=== PATIENT | female | born 1965 | race Caucasian/White ===

== ENCOUNTER 2016-06-02 15:03 | Emergency (ER) | payer OTHER ==
--- NOTE | 2016-06-02 16:33 | ER Document Report ---
ED Medical Screen (RME) - General Chief Complaint: Shortness Of Breath Stated Complaint: SHORTNESS OF BREATH Mode of Arrival: Ambulatory Information source: Patient Notes: 50-year-old female on xarelto with history of multiple DVTs and pulmonary emboli presents with complaints of generalized weakness over the past week. Patient notes she was placed on Bactrim Keflex for a skin infection believe she may be having a allergic reaction to this however does note recent travel I have greeted and performed a rapid initial assessment of this patient. A comprehensive ED assessment and evaluation of the patient, analysis of test results and completion of the medical decision making process will be conducted by additional ED providers. PHYSICAL EXAMINATION: GENERAL: Well-appearing, well-nourished and in no acute distress. HEAD: Atraumatic, normocephalic. EYES: Pupils equal round extraocular movements intact, conjunctiva are normal. ENT: Nares patent NECK: Normal range of motion LUNGS: No respiratory distress Musculoskeletal: Normal range of motion NEUROLOGICAL: Normal speech, normal gait. PSYCH: Normal mood, normal affect. SKIN: Generalized mild erythema of bilateral upper extremities TRAVEL OUTSIDE OF THE [place] IN LAST 30 DAYS: No - Related Data Allergies/Adverse Reactions: No Known Allergies Allergy (Verified 06/02/16 16:01) Past Medical History Renal/ Medical History: Denies: Hx Peritoneal Dialysis Physical Exam - Vital signs Vitals: Temp Pulse Resp BP Pulse Ox 97.3 F 81 20 107/60 99 06/02/16 15:24 06/02/16 15:24 06/02/16 15:24 06/02/16 15:24 06/02/16 15:24 Course - Vital Signs Vital signs: Temp Pulse Resp BP Pulse Ox 97.3 F 81 20 107/60 99 06/02/16 15:24 06/02/16 15:24 06/02/16 15:24 06/02/16 15:24 06/02/16 15:24
[2016-06-02 16:42] LABS: ABSOLUTE EOSINOPHILS # (AUTO) 0.3 10^3/uL (0.0-0.6); ABSOLUTE LYMPHOCYTES (AUTO) 1.7 10^3/uL (0.5-4.7); ABSOLUTE MONOCYTES (AUTO) 0.3 10^3/uL (0.1-1.4); BASOPHILS % (AUTO) 0.8 % (0-2); EOSINOPHILS % (AUTO) 6.3 % (0-6); HEMATOCRIT 36.7 % (36.0-47.0); HEMOGLOBIN 11.6 g/dL (12.0-15.5); HGB HCT DIFFERENCE -1.9; MEAN CORPUSCULAR HEMOGLOBIN 21.7 pg (27.0-33.4); MEAN CORPUSCULAR HGB CONC 31.5 g/dL (32.0-36.0); MEAN CORPUSCULAR VOLUME 69 fl (80-97); MONOCYTES % (AUTO) 6.3 % (3-13); RED BLOOD COUNT 5.33 10^6/uL (3.72-5.28); RED CELL DISTRIBUTION WIDTH 19.8 % (11.5-14.0); SEGMENTED NEUTROPHILS % (AUTO) 55.6 % (42-78); WHITE BLOOD COUNT 5.4 10^3/uL (4.0-10.5)
[2016-06-02 16:51] LABS: ALANINE AMINOTRANSFERASE 70 U/L (9-52); ALBUMIN 4.2 g/dL (3.5-5.0); ALKALINE PHOSPHATASE 76 U/L (38-126); ANION GAP 14 (5-19); ASPARTATE AMINO TRANSFERASE 60 U/L (14-36); BILIRUBIN,DIRECT 0.2 mg/dL (0.0-0.4); BILIRUBIN,TOTAL 0.5 mg/dL (0.2-1.3); BLOOD UREA NITROGEN 19 mg/dL (7-20); CALCIUM 9.6 mg/dL (8.4-10.2); CARBON DIOXIDE 22 mmol/L (22-30); CHLORIDE 96 mmol/L (98-107); CREATININE RESULT 0.83 mg/dL (0.52-1.25); GLUCOSE 179 mg/dL (75-110); POTASSIUM 4.8 mmol/L (3.6-5.0); SODIUM 131.7 mmol/L (137-145); TOTAL PROTEIN 7.8 g/dL (6.3-8.2)
--- NOTE | 2016-06-02 17:26 | ER Document Report ---
ED Respiratory Problem - General Chief Complaint: Shortness Of Breath Stated Complaint: SHORTNESS OF BREATH Mode of Arrival: Ambulatory Information source: Patient Notes: Patient is a 50-year-old female that presents today initially with the onset around 10 days ago of a "abscess" to her left lower buttock cheek. She saw her primary care physician 8 days ago and was started on Bactrim and Keflex and finished these antibiotics yesterday. She states for 5 days she has felt some fatigue and some shortness of breath. She also states since taking the antibiotics she has had an "itchy rash" to her arms back and chest. She denies any calf pain, leg swelling, or chest pain. Patient had a DVT/PE around 2004 when she was diagnosed with breast cancer. She has since that time had the breast cancer removed. She did have a repeat DVT around 2011 and is currently on Xarelto. Patient finished her antibiotics yesterday. She denies any throat itching, throat swelling, or difficulty breathing or swallowing. Patient states that her buttocks abscess "feels much better". TRAVEL OUTSIDE OF THE [place] IN LAST 30 DAYS: No - HPI Patient complains to provider of: Short of breath, Other - See above Onset: Other - See above Duration: Better Initiating Event: Other - See above; exposure to antibiotics Quality of pain: No pain Severity: Mild Pain Level: Denies Context: Other - See above Short of Breath: Mild Sputum amount: None Associated symptoms: Other - See above Similar symptoms previously: Yes Recently seen / treated by doctor: Yes - Related Data Allergies/Adverse Reactions: No Known Allergies Allergy (Verified 06/02/16 16:01) Past Medical History - General Information source: Patient - Social History Smoking Status: Unknown if Ever Smoked Cigarette use (# per day): No Chew tobacco use (# tins/day): No Smoking Education Provided: No Frequency of alcohol use: None Drug Abuse: None Family History: Reviewed & Not Pertinent Patient has suicidal ideation: No Patient has homicidal ideation: No - Past Medical History Cardiac Medical History: Reports: Hx Hypercholesterolemia Endocrine Medical History: Reports: Hx Diabetes Mellitus Type 2 Renal/ Medical History: Reports: Hx Kidney Stones. Denies: Hx Peritoneal Dialysis Past Surgical History: Reports: Hx Breast Surgery - bilateral masectomy. right lumpectomy Review of Systems - Review of Systems Constitutional: denies: Fever EENT: denies: Eye discharge, Nose discharge Cardiovascular: denies: Chest pain, Palpitations Respiratory: denies: Short of breath Gastrointestinal: denies: Abdomen distended, Abdominal pain, Vomiting Genitourinary: denies: Dysuria Musculoskeletal: denies: Leg swelling Skin: Rash Neurological/Psychological: Other - no slurred speech -: Yes All other systems reviewed and negative Physical Exam - Vital signs Vitals: Temp Pulse Resp BP Pulse Ox 97.3 F 81 20 107/60 99 06/02/16 15:24 06/02/16 15:24 06/02/16 15:24 06/02/16 15:24 06/02/16 15:24 Notes: Reviewed vital signs and nursing note as charted by RN. CONSTITUTIONAL: Alert and oriented and responds appropriately to questions. Well -appearing; well-nourished HEAD: Normocephalic; atraumatic EYES: PERRL; Conjunctivae clear, sclerae non-icteric ENT: Normal nose; no rhinorrhea; moist mucous membranes; pharynx without lesions noted NECK: Supple without meningismus; non-tender; no cervical lymphadenopathy, no masses CARD: Regular rate and rhythm; no murmurs, no clicks, no rubs, no gallops; symmetric distal pulses RESP: Normal chest excursion without splinting or tachypnea; breath sounds clear and equal bilaterally; no wheezes, no rhonchi, no rales ABD/GI: Normal bowel sounds; non-distended; soft, non-tender BACK: The back appears normal and is non-tender to palpation EXT: Normal ROM in all joints; non-tender to palpation; no cyanosis, no effusions, no edema SKIN: I checked the patient's formal abscess lesion site and see no obvious swelling, induration, or fluctuance currently. Patient does appear to have a resolving blanching rash to her arms, chest, and back. NEURO: Moves all extremities equally; Motor and sensory function intact PSYCH: The patient's mood and manner are appropriate. Grooming and personal hygiene are appropriate. Course - Re-evaluation Re-evalutation: 06/02/16 17:25 Given the history and physical examination with normal vital signs, good oxygenation, not tachycardic, no chest pain, no calf pain or leg swelling, already on Xarelto, I do believe pulmonary embolism to be unlikely. I am wondering if this could be a reaction to the patient's antibiotics. She did complete the antibiotics yesterday. I do not believe further antibiotics are necessary given the resolution of the lesion as detailed above. CTA was ordered in triage at the request of the sending provider. EKG shows a heart of 80, normal sinus rhythm, very minimal left axis deviation, no obvious ST elevation or depression. 06/02/16 18:49 CTA as recorded. Troponin as recorded. Patient has no abdominal tenderness with a normal bilirubin level. White count normal as recorded. 06/02/16 18:54 Patient still denies any pain to the chest or abdomen. Vital signs are stable. Labs as recorded. CTA shows no pulmonary embolism. Patient currently has no rash. No intervention was necessary. Patient has stopped taking antibiotics yesterday. I discussed with the patient on very slightly elevated AST/ALT. Patient has no right upper quadrant tenderness or palpable organomegaly. Patient will be discharged home with strict return precautions and follow-up with the primary doctor. - Vital Signs Vital signs: Temp Pulse Resp BP Pulse Ox 97.3 F 81 16 115/75 95 06/02/16 15:24 06/02/16 15:24 06/02/16 18:06 06/02/16 17:00 06/02/16 18:06 - Laboratory Result Diagrams: 06/02/16 16:27 06/02/16 16:27 Laboratory results interpreted by me: 06/02/16 06/02/16 16:27 16:27 RBC 5.33 H Hgb 11.6 L MCV 69 L MCH 21.7 L MCHC 31.5 L RDW 19.8 H Eosinophils % 6.3 H Sodium 131.7 L Chloride 96 L Glucose 179 H AST 60 H ALT 70 H Discharge - Discharge Clinical Impression: Shortness of breath Condition: Good Disposition: HOME, SELF-CARE Additional Instructions: Come back immediately with any return or worsening shortness of breath, any pain to the chest or abdomen, any fevers, vomiting, leg swelling, or return of rash. Please make sure that you follow-up with your primary care physician. Please also follow-up on your liver enzyme levels initial bilirubin was normal and your ALT/AST were only very slightly elevated.
[2016-06-02 19:01] VITALS: BP 129/75
--- NOTE | 2016-06-02 22:17 | EKG REPORT ---
SEVERITY:- OTHERWISE NORMAL ECG - SINUS RHYTHM BORDERLINE LEFT AXIS DEVIATION : Confirmed by: Ty Noonan 02-Jun-2016 22:16:57
== END 2016-06-02 19:04 | disposition home or self-care (01) ==
LOC: ER 15:03
DX: R06.02 Shortness of breath (principal); R53.83 Other fatigue; E11.9 Type 2 diabetes mellitus without complications; Z86.711 Personal history of pulmonary embolism; Z86.718 Personal history of other venous thrombosis and embolism; Z85.3 Personal history of malignant neoplasm of breast; Z79.01 Long term (current) use of anticoagulants
CPT/HCPCS: 36415; 71275; 80053; 83880; 85025; 93005; 93010; 99285